=== PATIENT | male | born 1990 | race Two or more races ===

== ENCOUNTER 2017-12-01 08:41 | Emergency (ER) | payer OTHER ==
[~2017-12-01] VITALS: Ht 170.2 cm; Wt 57.1 kg
[2017-12-01 08:45] VITALS: Ht 170.2 cm; Wt 57.1 kg
[2017-12-01 10:30] VITALS: BP 123/78
== END 2017-12-01 10:56 | disposition home or self-care (01) ==
LOC: ED 08:41
DX: S91.012A Laceration without foreign body, left ankle, initial encounter (principal); R11.2 Nausea with vomiting, unspecified; X58.XXXA Exposure to other specified factors, initial encounter; Y93.89 Activity, other specified; Y92.89 Other specified places as the place of occurrence of the external cause; Y99.8 Other external cause status
CPT/HCPCS: J2405